=== PATIENT | male | born 1965 | race Caucasian/White ===

== ENCOUNTER 2021-02-23 04:21 | Emergency (ER) | payer BC ==
[2021-02-23] MEDS ORDERED: Ketorolac Tromethamine 30 MG/ML VIAL ONE (04:48)
[2021-02-23 05:08] LABS: #Monocytes 0.2 10x3/uL (0.0-1.1); #Neutrophils 5.5 10x3/uL (1.5-8.4); %Basophils 0.3 % (0.0-2.0); %Eosinophils 0.1 % (0.0-6.0); %Lymphocytes 14.2 % (18.0-47.0); %Monocytes 3.3 % (0.0-10.0); %Neutrophils 81.8 % (40.0-75.0); Bilirubin Neg (Negative); Blood, Urine 250 (Negative); Clarity Clear (Clear); Glucose, Urine (Dipstick) 250 mg/dL (Negative); Hemoglobin 13.8 g/dL (13.5-17.5); Ketone, Urine Negative (Negative); Leukocyte Negative (Negative); Mean Corpuscular HGB CONC 32.8 g/dL (32.0-36.0); Mean Corpuscular Hemoglobin 29.1 pg (27.0-33.0); Mean Corpuscular Volume 88.8 fl (81.2-95.1); Mean Platelet Volume 8.7 fl (7.4-10.4); Nitrite Negative (Negative); Platelet Count 294 10x3/uL (150-450); Protein, Urine (Dipstick) 30 mg/dl (Neg-Trace); RBC Distribution Width 12.9 % (11.5-14.5); Red Blood Cell (RBC) Count 4.74 10x6/uL (4.32-5.72); Specific Gravity, Urine 1.025 (1.002-1.036); Urobilinogen Normal mg/dL (Less than 2); White Blood Cell (WBC) Count 6.7 10x3/uL (3.5-10.5)
[2021-02-23 05:26] LABS: ALT (SGPT) 58 U/L (8-55); AST (SGOT) 30 U/L (5-34); Albumin 4.4 g/dL (3.5-5.0); Alkaline Phosphatase 45 U/L (40-110); Anion Gap 16 mmol/L (10-20); BUN (Urea Nitrogen) 15 mg/dL (8.4-25.7); Bilirubin, Total 0.4 mg/dL (0.2-1.2); Calc. Creatinine Clearance 0 mL/min (70-130); Calcium 9.7 mg/dL (7.8-10.44); Carbon Dioxide 22 mmol/L (22-29); Chloride 105 mmol/L (98-107); Glucose 227 mg/dL (70-105); Potassium 3.9 mmol/L (3.5-5.1); Protein, Total 7.4 g/dL (6.0-8.3); Sodium 139 mmol/L (136-145)
[2021-02-23 05:34] LABS: Bacteria/HPF 1+ HPF (None Seen); Mucous/LPF 2+ LPF (<2+); Squamous Epithelial 0-3 HPF (0-3); Yeast-Budding 1+ HPF (None Seen)
== END 2021-02-23 05:51 | disposition home or self-care (01) ==
LOC: CSHERS 04:21
DX: N30.00 Acute cystitis without hematuria (principal); N23 Unspecified renal colic; E11.9 Type 2 diabetes mellitus without complications; E78.00 Pure hypercholesterolemia, unspecified; G47.30 Sleep apnea, unspecified; Z79.84 Long term (current) use of oral hypoglycemic drugs; Z79.899 Other long term (current) drug therapy
CPT/HCPCS: 74176; 80053; 81003; 81015; 85025; J1885

== ENCOUNTER 2025-04-03 15:07 | Outpatient (CLI) | payer BC ==
[~2025-04-03 15:07] MED LIST: Iopamidol 370 76% 100 ML VIAL ONE
== END 2025-04-03 15:08 | disposition home or self-care (01) ==
LOC: CSHCT 15:07
PROVIDERS: ATTEND Urology
DX: N20.0 Calculus of kidney (principal); D35.01 Benign neoplasm of right adrenal gland; N28.1 Cyst of kidney, acquired; K76.0 Fatty (change of) liver, not elsewhere classified
CPT/HCPCS: 74170; Q9967